=== PATIENT | male | born 1975 | race Hispanic/Latino ===

== ENCOUNTER 2022-02-22 10:49 | Emergency (ER) | payer SELFPAY ==
[2022-02-22] MEDS ORDERED: Sodium Chloride 0.9% 10 ML Syringe FLUSH PRN (11:00)
[2022-02-22] MEDS ORDERED: Sodium Chloride 0.9% 1,000 ML IV ONE (11:00)
[2022-02-22] MEDS ORDERED: Sodium Chloride 0.9% 2.5 ML Syringe FLUSH PRN (11:00)
[2022-02-22] MEDS ORDERED: Nitroglycerin 0.4 MG Tab.SL SL ONE (11:10)
[2022-02-22 11:39] LABS: CARBON DIOXIDE,CO2 23.6 mmol/L (21.0-32.0)
[2022-02-22] MEDS ORDERED: Alum Hydro/Mag Hydro/Simeth XS 15 ML, Lidocaine 2% 5 ML PO ONE ×2 (13:57)
[2022-02-22] MEDS ORDERED: Orphenadrine 60 MG/2 ML Inj IM ONE (13:57)
== END 2022-02-22 14:29 | disposition home or self-care (01) ==
LOC: MW.ED 10:49
DX: K21.9 Gastro-esophageal reflux disease without esophagitis (principal); Z91.018 Allergy to other foods; Z20.822 Contact with and (suspected) exposure to COVID-19
CPT/HCPCS: 36415; 71045; 80053; 83690; 83735; 84484; 85025; 85379; 85610; 87635; 93005; 96360; 96372; 99285; A9270; J2360; J3490; J7030; 93010; U0002

== ENCOUNTER 2022-12-14 11:08 | Emergency (ER) | payer SELFPAY | END 2022-12-14 11:55 | disposition home or self-care (01) | LOC: MW.ED 11:08 | DX: S92.512A Displaced fracture of proximal phalanx of left lesser toe(s), initial encounter for closed fracture (principal); F17.210 Nicotine dependence, cigarettes, uncomplicated; E66.9 Obesity, unspecified; Z68.41 Body mass index [BMI] 40.0-44.9, adult; Z91.018 Allergy to other foods; W20.8XXA Other cause of strike by thrown, projected or falling object, initial encounter | CPT/HCPCS: 73620-26-LT; 73620-LT; 99283 ==